=== PATIENT | male | born 1950 | race Caucasian/White ===

== ENCOUNTER 2023-01-10 08:42 | Outpatient (CLI) | payer MEDICARE ==
[~2023-01-10 08:42] MED LIST: AMLO5TAB4 PO; ASPI81TA52 PO; EMPA25TA PO; FERR325T32 PO; HYDR25TA4 PO; METF-900 PO; OMEP40CA21 PO; POTA-366 PO; ROSU40TA PO
[2023-01-10 09:23] LABS: CHOL/HDL RATIO 3.1 (0.00-4.99); CHOLESTEROL 121 MG/DL (0-200); HDL CHOLESTEROL 39 MG/DL (35-60); LDL CHOLESTEROL 37 MG/DL (50-100); TRIGLYCERIDES 174 MG/DL (20-135)
== END 2023-01-10 23:59 | disposition home or self-care (01) ==
LOC: LAB 08:42
PROVIDERS: ATTEND Internal Medicine Interventional Cardiology
DX: E78.5 Hyperlipidemia, unspecified (principal)
CPT/HCPCS: 36415; 80061

== ENCOUNTER 2023-02-21 11:55 | Outpatient (CLI) | payer MEDICARE ==
[2023-02-21 12:40] LABS: BASOPHILS % (AUTO) 0.3 % (0-1); EOSINOPHILS # (AUTO) 0.1 X10'3 (0-0.9); EOSINOPHILS % (AUTO) 1.5 % (0-6); HEMATOCRIT 47.1 % (42.0-52.0); HEMOGLOBIN 15.4 g/dl (14.0-17.9); LYMPHOCYTES # (AUTO) 2.5 X10'3 (1.1-4.8); LYMPHOCYTES % (AUTO) 31.9 % (21-51); MEAN CORPUSCULAR HGB CONC 32.7 g/dL (33.0-36.5); MEAN CORPUSCULAR VOLUME 82.7 FL (78-98); MEAN PLATELET VOLUME 7.8 FL (7.4-10.4); MONOCYTES # (AUTO) 0.6 X10'3 (0-0.9); MONOCYTES % (AUTO) 7.3 % (2-12); NEUTROPHILS # (AUTO) 4.7 X10'3 (1.8-7.7); PLATELET COUNT 181 X10'3 (140-440); RED CELL DISTRIBUTION WIDTH 16.6 % (11.5-14.5)
[2023-02-21 12:59] LABS: APTT 28 SECONDS (22-32)
[2023-02-21 13:08] LABS: ALANINE AMINOTRANSFERASE 29 U/L (12-78); ALBUMIN 3.8 G/DL (3.4-5.0); ALBUMIN/GLOBULIN RATIO 1.2 (1.1-1.5); ALKALINE PHOSPHATASE 97 IU/L (46-116); ANION GAP 12 (8-16); ASPARTATE AMINO TRANSFERASE 23 U/L (10-37); BILIRUBIN,TOTAL 0.5 MG/DL (0.1-1.0); BLOOD UREA NITROGEN 17 MG/DL (7-18); BUN/CREATININE RATIO 18.5 (10.0-20.0); CHLORIDE 105 MMOL/L (99-107); CREATININE 0.92 MG/DL (0.60-1.10); GLUCOSE 103 MG/DL (70-104); POTASSIUM 3.5 MMOL/L (3.5-5.1); SODIUM 142 MMOL/L (135-145); TOTAL PROTEIN 6.9 G/DL (6.4-8.2); eGFR 81 ML/MIN
[2023-02-21] MEDS ORDERED: IODIXANOL 320 MG/ML INFUS..BTL 100ML IV ONE (13:16)
== END 2023-02-21 23:59 | disposition home or self-care (01) ==
LOC: RAD 11:55
PROVIDERS: ATTEND Internal Medicine Cardiovascular Disease
DX: J43.2 Centrilobular emphysema (principal); K76.0 Fatty (change of) liver, not elsewhere classified; R16.1 Splenomegaly, not elsewhere classified; N20.0 Calculus of kidney; N28.1 Cyst of kidney, acquired; N40.0 Benign prostatic hyperplasia without lower urinary tract symptoms; I35.8 Other nonrheumatic aortic valve disorders; R06.02 Shortness of breath; I65.29 Occlusion and stenosis of unspecified carotid artery; R94.2 Abnormal results of pulmonary function studies; I70.0 Atherosclerosis of aorta; J98.11 Atelectasis; I25.10 Atherosclerotic heart disease of native coronary artery without angina pectoris; K42.9 Umbilical hernia without obstruction or gangrene; K40.90 Unilateral inguinal hernia, without obstruction or gangrene, not specified as recurrent; M47.814 Spondylosis without myelopathy or radiculopathy, thoracic region; M47.817 Spondylosis without myelopathy or radiculopathy, lumbosacral region; M40.294 Other kyphosis, thoracic region
CPT/HCPCS: 36415; 71046; 71275; 74174; 80053; 83880; 85025; 85610; 85730; 94010; 94727; 94729; J3490; Q9967

== ENCOUNTER 2023-03-22 08:26 | Inpatient (IN) | payer MEDICARE ==
[2023-03-19 11:14] LABS: BASOPHILS % (AUTO) 0.6 % (0-1); EOSINOPHILS # (AUTO) 0.1 X10'3 (0-0.9); LYMPHOCYTES # (AUTO) 1.8 X10'3 (1.1-4.8); LYMPHOCYTES % (AUTO) 28.6 % (21-51); MEAN CORPUSCULAR HEMOGLOBIN 27.3 PG (27.0-31.0); MEAN CORPUSCULAR HGB CONC 32.8 g/dL (33.0-36.5); MEAN CORPUSCULAR VOLUME 83.5 FL (78-98); MEAN PLATELET VOLUME 7.9 FL (7.4-10.4); MONOCYTES # (AUTO) 0.5 X10'3 (0-0.9); MONOCYTES % (AUTO) 8.1 % (2-12); NEUTROPHILS # (AUTO) 3.9 X10'3 (1.8-7.7); NEUTROPHILS % (AUTO) 60.7 % (42-75); PRE OP HEMATOCRIT 45.6 % (42.0-52.0); PRE OP HEMOGLOBIN 14.9 g/dL (14.0-17.9); PRE OP PLATELET COUNT 160 X10'3 (140-440); PRE OP WHITE BLOOD COUNT 6.4 10'3 (4.8-10.8); RED BLOOD COUNT 5.46 X10'6 (4.70-6.10); RED CELL DISTRIBUTION WIDTH 16.6 % (11.5-14.5)
[2023-03-19 11:19] LABS: BILIRUBIN,URINE NEGATIVE (Neg); CLARITY,URINE CLEAR (Clear); COLOR,URINE YELLOW (Yellow); GLUCOSE, URINE >=1000 mg/dl (Neg); KETONES,URINE NEGATIVE (Neg); LEUKOCYTE ESTERASE ,URINE NEGATIVE (Neg); NITRITES, URINE NEGATIVE (Neg); OCCULT BLOOD,URINE NEGATIVE (Neg); PROTEIN,URINE NEGATIVE (Neg); UROBILINOGEN,URINE 0.2 E.U/dL (0.2-1.0)
[2023-03-19 11:26] LABS: PRE OP PROTIME 10.8 SECONDS (9.0-12.0)
[2023-03-19 11:34] LABS: UA COLLECTION TYPE CLN CATCH MIDSTREAM
[2023-03-19 11:37] LABS: BACTERIA,URINE FEW /HPF (Neg); MUCUS STRANDS NONE SEEN /LPF (Neg); RBC,URINE 0-2 /HPF (0-2); SQUAMOUS EPITHELIAL CELL,UR NONE SEEN /LPF (FEW); WBC,URINE 0-4 /HPF (0-4)
[2023-03-19 11:38] LABS: ALBUMIN 3.6 G/DL (3.4-5.0); ALBUMIN/GLOBULIN RATIO 1.1 (1.1-1.5); ALKALINE PHOSPHATASE 82 IU/L (46-116); BLOOD UREA NITROGEN 20 MG/DL (7-18); BUN/CREATININE RATIO 21.1 (10.0-20.0); CALCIUM 9.1 MG/DL (8.5-10.1); CHLORIDE 105 MMOL/L (99-107); CREATININE 0.95 MG/DL (0.60-1.10); PRE OP ALT 28 U/L (30-65); PRE OP ANION GAP 11 (8-16); PRE OP AST 18 U/L (10-37); PRE OP BILIRUB, TOTAL 0.5 MG/DL (0.0-1.0); PRE OP GLUCOSE 131 MG/DL (70-104); PRE OP POTASSIUM 3.6 MMOL/L (3.4-5.1); PRE OP SODIUM 142 MMOL/L (135-145); PRO BRAIN NATRIURETIC PEPTIDE 68 PG/ML (0-125); TOTAL CARBON DIOXIDE 26.2 MMOL/L (24-32); TOTAL PROTEIN 6.8 G/DL (6.4-8.2); eGFR 78 ML/MIN
[2023-03-22] VITALS (16 sets, daily range): BP systolic 117–174; BP diastolic 47–86; PULSE 60–70; RESP 10–21; TEMP 97.4–98.2; O2SAT 92–99
[~2023-03-22] VITALS: Ht 180.3 cm; Wt 98.5 kg
[~2023-03-22 08:26] MED LIST changes: +ALBU8HFA PO; +MULT-1141 PO; +OMEP20CA15 PO; -OMEP40CA21 PO; +aspirin 325mg tablet PO ONE; +cefazolin 2gm/D5W 100mL 100 ML IV ONE; +famotidine 20mg tablet PO ONE; +nitroPRUSSIDE (NIPRIDE) (200MCG/ML) 100ML Drip IV SCH; +ondansetron/PF 4mg/2ml inj IV PRN; +phenylephrine inj 50 MG in normal saline 250ml IV solN IV SCH; +protamine sulfate 10mg/ml inj. ONE; +ringers solution, lacted 1,000 ML IV SCH; +vancomycin 1,500 MG in NS 300ml IV soln IV ONE
--- NOTE | 2023-03-22 10:20 | NUR ---
PER MD SUMMERS, OK TO MISS DOSE PEPCID SINCE PATIENT TOOK HIS OWN MEDICATION THIS AM.
[2023-03-22] MEDS ORDERED: morphine 4 MG/ML inj SYRINge IV PRN (11:20)
[2023-03-22] MEDS ORDERED: morphine 2 MG/ML inj. syringe IV PRN (11:20)
[2023-03-22] MEDS ORDERED: meperidine/PF 25mg/ml syringe IV PRN ×3 (11:20)
[2023-03-22] MEDS ORDERED: ondansetron/PF 4mg/2ml inj IV PRN ×2 (11:20→13:45)
[2023-03-22] MEDS ORDERED: ringers solution, lacted 1,000 ML IV SCH (11:20)
[2023-03-22] MEDS ORDERED: proCHLORperazine 10 MG/2 ml inj IV PRN ×2 (11:20→13:45)
[2023-03-22] MEDS ORDERED: LIDOcaine 1% 30ml preserv. free vial ONE (12:00)
[2023-03-22] MEDS ORDERED: heparin 1,000 UNITS/NS 500ml 1,500 ML ONE (12:01)
[2023-03-22] MEDS ORDERED: iohexol 350MG/ML 100ml bottle IV ONE (12:01)
[2023-03-22] MEDS ORDERED: sevoflurane 250ml liquid IH ONE (12:24)
[2023-03-22] MEDS ORDERED: heparin 1,000 UNITS/NS 500ml 500 ML ONE (12:26)
[2023-03-22] MEDS ORDERED: midazolam 1 mg/ML 2ml injection ONE (12:28)
[2023-03-22] MEDS ORDERED: fentaNYL/PF 50MCG/1 ML 2ML syringe ONE (12:28)
[2023-03-22] MEDS ORDERED: propofol inj 20 ML IV ONE (12:50)
[2023-03-22] MEDS ORDERED: heparin 1,000unit/ml 10ml vial 10 ML ONE (12:50)
[2023-03-22] MEDS ORDERED: insulin Lispro (HumaLOG) vial - multi-dose SQ SCH (13:45)
[2023-03-22] MEDS ORDERED: acetaminophen 325mg tablet PO PRN (13:45)
[2023-03-22] MEDS ORDERED: potassium Cl 40MEQ/1/2NS 520ml 520 ML IV PRN (13:45)
[2023-03-22] MEDS ORDERED: potassium Cl 20 mEq SR tablet PO PRN (13:45)
[2023-03-22] MEDS ORDERED: potassium Cl 40MEQ/270ML bag 250 ML IV PRN (13:45)
[2023-03-22] MEDS ORDERED: hydrALAZINE 20mg/ml inj. IV PRN (13:45)
[2023-03-22] MEDS ORDERED: potassium CL 10mEq/100ml bag 100 ML IV PRN (13:45)
[2023-03-22] MEDS ORDERED: HYDROcodone/acetaminophen 5mg/325mg tablet PO PRN (13:45)
[2023-03-22] MEDS ORDERED: insulin regular, human U-100 3ml vial - multi-dose SQ SCH (13:45)
[2023-03-22] MEDS ORDERED: magnesium 2GM in 50ml NS 50 ML IV PRN (13:45)
[2023-03-22] MEDS ORDERED: labetalol 20mg/4ml (5mg/ml) syringe IV PRN (13:45)
[2023-03-22] MEDS ORDERED: DEXTROSE 15 GM of carb/4 tabs (each vial/BOTTLE has 4 tablets) PO PRN ×2 (13:45)
[2023-03-22] MEDS ORDERED: potassium Cl 20mEq/100mL bag 100 ML IV PRN (13:45)
[2023-03-22] MEDS ORDERED: docusate sod 100mg capsule PO PRN (13:45)
[2023-03-22] MEDS ORDERED: dextrose 50%-water 50ml dispensing syringe IV PRN ×2 (13:45)
[2023-03-22] MEDS ORDERED: ALPRAZolam 0.25mg tablet PO PRN (13:45)
[2023-03-22] MEDS ORDERED: diphenhydrAMINE 25mg capsule PO PRN (13:45)
[2023-03-22] MEDS ORDERED: glucagon, human recombinant 1mg kit SUBCUT PRN (13:45)
[2023-03-22] MEDS ORDERED: MESSAGE TO PHARMACY PO ONE (13:45)
[2023-03-22] MEDS ORDERED: magnesium 4gm in 100ml NS 100 ML IV PRN (13:45)
[2023-03-22] MEDS ORDERED: pantoprazole 40mg Tablet.DR PO PRN (13:45)
--- NOTE | 2023-03-22 13:55 | NUR ---
TAVR: Received from OR via HOSPITAL BED , accompanied by Anesthesiologist KRISTOPHER and report given by Anesthesiologist. PATIENT WITH 18G PIV IN RIGHT FOREARM RUNNING LR AT 100. DENIES PAIN. PATIENT WITH ART LINE TO LEFT RADIAL. BILATERAL GROIN SITES CDI AND SOFT. BILATERAL PULSES PALPABLE. DENIES PAIN.ANSWERS QUESTIONS APPROPRIATELY.
--- NOTE | 2023-03-22 15:25 | NUR ---
TAVR: Received from OR via MED SURG BED WITH SARIKA , accompanied by Anesthesiologist KRISTOPHER and report given by Anesthesiologist. PATIENT WITH 18G PIV IN RIGHT HAND RUNNING LR AT 100. DENIES PAIN. PATIENT WITH ART LINE TO LEFT UE. Addendum: 03/22/23 at 1546 by Linda Glover RN PLACED IN ERROR, DISREGARD.
--- NOTE | 2023-03-22 15:45 | NUR ---
Patient in room PCU 3012. I have received report from CHARLY Mckeon and had the opportunity to ask questions and assume patient care.
--- NOTE | 2023-03-22 15:47 | NUR ---
PATIENT MEETS DISCHARGE CRITERIA FROM RECOVERY ROOM. BILATERAL GROIN SITES CDI AND SOFT. PALPABLE PULSES THROUGHOUT. 18G PIV TO RFA INFUSING LR AT 100ML/HR. DENIES PAIN. NO NAUSEA. PATIENT SENT TO 5181Y WITH GLASSES AND PHONE, PATIENT STATES ALL OTHER BELONGINGS ARE WITH , FELIPE. REPORT GIVEN TO MODESTO.
[2023-03-22] MEDS: normal saline 1000ml 1,000 ML IV SCH ×2 (16:00→23:45)
--- NOTE | 2023-03-22 16:00 | NUR ---
Pt arrived on the unit. Pt in NAD, denies pain. Groin sites checked, neuro intact. will continue to monitor.
[2023-03-22] MEDS: sod chloride 0.9% 10ml flush syringe IV SCH (16:19)
[2023-03-22] MEDS: ceFAZolin 1GM/D5W- ADD-VANTAGE 50 ML IV SCH (16:27)
--- NOTE | 2023-03-22 19:07 | NUR ---
Problems reprioritized. Patient report given, questions answered & plan of care reviewed with Kim. PARKS.
[2023-03-22] MEDS: vancomycin/NS 1 GM ADD-VANTAGE 250 ML IV SCH (20:28)
[2023-03-22] MEDS ORDERED: insulin glargine (Lantus) pen - multi-dose SQ SCH (21:00)
[2023-03-23] MEDS: ceFAZolin 1GM/D5W- ADD-VANTAGE 50 ML IV SCH ×2 (00:36→07:38)
[2023-03-23 02:00] VITALS: BP_SYST 117; BP_SYST 133; BP_DIAS 47; BP_DIAS 73; PULSE 65; PULSE 82; RESP 13; RESP 17; TEMP 97.9; TEMP 98.2; O2SAT 95
--- NOTE | 2023-03-23 02:43 | NUR ---
Received patient during bedside rounds at 1830, lying flat in bed, Groin site dressings dry and intact, pedal pulses present bilaterally, patient denies any complaints of pain or shortness of breath. At 1999 pt ambulated to the bathroom for large BM, gait was steady and strong. Returned to bed, groin dressings remained dry and intact without swelling.
[2023-03-23 06:00] VITALS: BP 134/74; PULSE 77; RESP 13; TEMP 97.8; O2SAT 98
[2023-03-23 07:13] LABS: BASOPHILS % (AUTO) 0.3 % (0-1); EOSINOPHILS # (AUTO) 0.1 X10'3 (0-0.9); EOSINOPHILS % (AUTO) 0.7 % (0-6); HEMATOCRIT 44.2 % (42.0-52.0); HEMOGLOBIN 14.7 g/dl (14.0-17.9); LYMPHOCYTES # (AUTO) 1.1 X10'3 (1.1-4.8); LYMPHOCYTES % (AUTO) 12.6 % (21-51); MEAN CORPUSCULAR HEMOGLOBIN 27.6 PG (27.0-31.0); MEAN CORPUSCULAR HGB CONC 33.2 g/dL (33.0-36.5); MEAN CORPUSCULAR VOLUME 83.3 FL (78-98); MEAN PLATELET VOLUME 7.7 FL (7.4-10.4); MONOCYTES # (AUTO) 0.8 X10'3 (0-0.9); MONOCYTES % (AUTO) 9.2 % (2-12); NEUTROPHILS # (AUTO) 6.9 X10'3 (1.8-7.7); NEUTROPHILS % (AUTO) 77.2 % (42-75); PLATELET COUNT 141 X10'3 (140-440); RED BLOOD COUNT 5.31 X10'6 (4.70-6.10); RED CELL DISTRIBUTION WIDTH 16.5 % (11.5-14.5)
[2023-03-23 07:52] LABS: ALANINE AMINOTRANSFERASE 24 U/L (12-78); ALBUMIN 3.6 G/DL (3.4-5.0); ALBUMIN/GLOBULIN RATIO 1.2 (1.1-1.5); ALKALINE PHOSPHATASE 75 IU/L (46-116); ANION GAP 11 (8-16); ASPARTATE AMINO TRANSFERASE 23 U/L (10-37); BILIRUBIN,TOTAL 1.1 MG/DL (0.1-1.0); BLOOD UREA NITROGEN 16 MG/DL (7-18); BUN/CREATININE RATIO 17.4 (10.0-20.0); CALCIUM 8.4 MG/DL (8.5-10.1); CHLORIDE 104 MMOL/L (99-107); CREATININE 0.92 MG/DL (0.60-1.10); GLUCOSE 119 MG/DL (70-104); POTASSIUM 3.8 MMOL/L (3.5-5.1); PRO BRAIN NATRIURETIC PEPTIDE 187 PG/ML (0-125); SODIUM 140 MMOL/L (135-145); TOTAL CARBON DIOXIDE 25.5 MMOL/L (24-32); TOTAL PROTEIN 6.6 G/DL (6.4-8.2); eCRCL 76 ML/MIN; eGFR 81 ML/MIN
[2023-03-23] MEDS: sod chloride 0.9% 10ml flush syringe IV SCH ×2 (08:00)
--- NOTE | 2023-03-23 08:01 | NUR ---
Patient in room PCU 3012. I have received report from Reema PARKS and had the opportunity to ask questions and assume patient care.
[2023-03-23] MEDS ORDERED: aspirin 81mg tab.chew PO SCH (08:30)
[2023-03-23] MEDS: vancomycin/NS 1 GM ADD-VANTAGE 250 ML IV SCH (09:26)
--- NOTE | 2023-03-23 09:40 | NUR ---
Per EMR pt with T2DM, well controlled with A1c 7.0%. DM education not warranted at this time. Will continue to follow. Addendum: 03/23/23 at [address] Amended: Links added.
[2023-03-23] MEDS: normal saline 1000ml 1,000 ML IV SCH (09:45)
[2023-03-23 11:00] VITALS: BP 122/68; PULSE 74; RESP 17; TEMP 98.1; O2SAT 96
--- NOTE | 2023-03-23 13:03 | NUR ---
Pt was discharged home via private vehicle with daughter. Post op education given. Questions answered. Pt aware of follow up appointments. Pt walked out to front lobby with all belongings. IV removed and pt unhooked from tele.
== END 2023-03-23 13:00 | disposition home or self-care (01) | DRG 267 ==
LOC: PAS IN 08:26 → PCU 3S 16:02
PROVIDERS: ADMIT Internal Medicine Cardiovascular Disease; ATTEND Internal Medicine Cardiovascular Disease
PROC: 027F3ZZ Dilation of Aortic Valve, Percutaneous Approach (ICD-10-PCS; 2023-03-22)
PROC: B41D1ZZ Fluoroscopy of Aorta and Bilateral Lower Extremity Arteries using Low Osmolar Contrast (ICD-10-PCS; 2023-03-22)
PROC: 02RF38Z Replacement of Aortic Valve with Zooplastic Tissue, Percutaneous Approach (ICD-10-PCS; principal; 2023-03-22 12:24)
DX: I35.0 Nonrheumatic aortic (valve) stenosis (principal); Z00.6 Encounter for examination for normal comparison and control in clinical research program; J98.11 Atelectasis; E11.51 Type 2 diabetes mellitus with diabetic peripheral angiopathy without gangrene; I10 Essential (primary) hypertension; K21.9 Gastro-esophageal reflux disease without esophagitis; G47.33 Obstructive sleep apnea (adult) (pediatric); I49.3 Ventricular premature depolarization; J44.9 Chronic obstructive pulmonary disease, unspecified; Z79.84 Long term (current) use of oral hypoglycemic drugs; Z79.899 Other long term (current) drug therapy; Z79.82 Long term (current) use of aspirin; Z86.718 Personal history of other venous thrombosis and embolism
CPT/HCPCS: 33361; 36415; 71045; 76937; 80053; 81001; 82948; 83036; 83735; 83880; 85025; 85347; 85610; 85730; 86885; 86900; 86901; 86920; 87081; 93005; 93308; A4618; A6258; A6449; C1725; C1756; C1760; C1769; C1894; G0378; J0690; J1644; J1815; J2250; J2370; J2704; J2720; J3010; J3370; J3490; J7030; J7040; J7050; J7120; Q9967